=== PATIENT | female | born 1955 | race Caucasian/White ===

== ENCOUNTER → 2020-12-27 | Outpatient (CLI) | payer BC ==
--- NOTE | 2020-12-27 21:11 | CTL ---
EXAMINATION TYPE: CT Low Dose Lung DATE OF EXAM ORDERED: 12/27/2020 HISTORY: . Lung cancer screening CT DLP: 69.[address] CTDI: 1.9 mGy Automated exposure control for dose reduction was used. SCREENING VISIT: COMPARISON: TECHNIQUE: Low dose computed tomography scan was performed through the chest at 1 mm thick sections a nd reconstructed images in multiple planes at 1 mm and [address] DIAGNOSTIC QUALITY: Satisfactory FINDINGS: Diffuse emphysematous changes are noted. No sizable pneumothorax or pleural effusion. Biapical pleura l thickening with no definite calcifications. Subpleural nodule right upper lobe posteriorly measurin g 2 mm. No pleural effusion. No pneumothorax. Mild basilar bronchiectasis. No consolidative pneumonia . Heart size normal. No significant coronary artery calcification. Aorta of normal caliber. No definite pathologic adenopathy by noncontrast technique. Structures of the upper abdomen demonstrate no acute abnormality. Hypertrophic changes of the spine w ith mild multilevel degenerative disc disease. There is indeterminate 2.5 cm lesion in the left lobe of the liver which measures 19 Hounsfield units does not meet the criteria of simple cyst IMPRESSION: 1. Diffuse emphysematous changes with the 2 mm subpleural nodule right upper lobe likely benign. 2. Indeterminate 2.5 cm left lobe hepatic lesion recommend ultrasound. 3. Basilar bronchiectasis CT LUNG RAD AND CT CHEST RECOMMENDATION: Lung-Rad 2 Benign Appearance or Behavior: Continue annual sc reening with LDCT in 12 months.
== END | disposition home or self-care (01) ==
LOC: RADCTMAIN 18:45
PROVIDERS: ATTEND Family Medicine
DX: Z12.2 Encounter for screening for malignant neoplasm of respiratory organs (principal); R91.8 Other nonspecific abnormal finding of lung field; J47.9 Bronchiectasis, uncomplicated
CPT/HCPCS: 71271

== ENCOUNTER → 2021-01-29 | Outpatient (CLI) | payer BC ==
--- NOTE | 2021-01-29 14:43 | US ---
EXAMINATION TYPE: US liver DATE OF EXAM: 01/29/2021 COMPARISON: CT lung 12/27/2020 - Indeterminate 2.5 left lobe hepatic lesion seen, ultrasound was recom mended. CLINICAL HISTORY: R93.2 ABNORMAL FINDINGS ON DIAGNOSTIC IMAGING OF LIVER. EXAM MEASUREMENTS: Liver Length: 13.3 cm Gallbladder Wall: 0.2m CBD: 0.5m Right Kidney: 9.0 x 4.6 x 5.0 cm Pancreas: wnl as seen Liver: 2.1 x 2.3 x 2.2 cm anechoic focus seen in left lobe of the liver. Difficult visualization of lesion due to the presence of overlying bowel gas. Gallbladder: Echogenic foci seen with posterior shadowing. Evidence for sonographic Mederos's sign: No CBD: wnl Right Kidney: wnl IMPRESSION: 1. Hepatic cyst 2. Cholelithiasis
== END | disposition home or self-care (01) ==
LOC: RADUSWWP 12:21
PROVIDERS: ATTEND Family Medicine
DX: K76.89 Other specified diseases of liver (principal); K80.20 Calculus of gallbladder without cholecystitis without obstruction
CPT/HCPCS: 76705